=== PATIENT | female | born 1950 | race Caucasian/White ===

== ENCOUNTER 2018-04-21 14:00 | Outpatient (RCR) | payer SELFPAY | END 2018-05-06 | disposition home or self-care (01) | LOC: WCC 14:00 | DX: R41.1 Anterograde amnesia (principal); Z88.6 Allergy status to analgesic agent; Z88.2 Allergy status to sulfonamides; Z88.0 Allergy status to penicillin; Z91.011 Allergy to milk products | CPT/HCPCS: G0277 ×6 ==

== ENCOUNTER 2018-04-21 14:31 | Outpatient (CLI) | payer MEDICARE, BC | END 2018-04-21 16:31 | disposition home or self-care (01) | LOC: WCC 14:31 | DX: Z53.9 Procedure and treatment not carried out, unspecified reason (principal) | CPT/HCPCS: G0463 ==